=== PATIENT | female | born 1975 | race Caucasian/White ===

== ENCOUNTER 2024-12-14 12:16 | Outpatient (OUT) | payer MEDICARE, MEDICAID, SELFPAY ==
--- NOTE | 2024-12-14 12:44 | XR_ITS ---
[address] [address] Patient Name: ALY HILL MRN: [id number] date: 1975 Sex: F Assigned Patient Location: LAB Current Patient Location: LAB Accession/Order Number: [id number] Exam Date: 12/14/2024 12:49 Report Date: 12/14/2024 22:02 At the request of: TEZ EWING MD Procedure: XR chest 2V XR chest 2V 12/14/2024 12:53 PM SIGNS AND SYMPTOMS: ^Pre Operative Evaluation PROTOCOL: Frontal and lateral radiographs of the chest COMPARISON: None FINDINGS: The trachea is midline. The heart and mediastinal structures are within normal limits. The lung parenchyma is clear. The bony thorax is intact. There is a spinal cord stimulator. IMPRESSION: No acute cardiopulmonary pathology. Impression dictated by: Charlie Teran M.D. 12/14/2024 10:02 PM Dictation Location: [place] [id number] Electronically authenticated by: [id number] Y Date: 12/14/2024 22:02
[2024-12-14 12:47] LABS: Hematocrit 43.7 % (36.0-48.0); Hemoglobin 15.4 g/dL (12.0-16.0); Immature Granulocytes Abs Auto 0.04 10^3/uL (0.00-0.03); Immature Granulocytes Pct Auto 0.5 % (0.0-0.5); Lymphocytes Absolute Auto 2.2 10^3/uL (1.2-3.8); Mean Corpuscular HGB Conc 35.2 g/dL (29.9-35.2); Mean Corpuscular Hemoglobin 29.8 pg (26.7-34.0); Mean Corpuscular Volume 84.7 fL (81.0-99.0); Platelet Count 283 10^3/uL (150-450); Red Blood Count 5.16 10^6/uL (4.20-5.40); White Blood Count 8.0 10^3/uL (4.0-11.0)
--- NOTE | 2024-12-14 12:49 | ECG_ITS ---
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 Measurements Intervals [place] Rate: 83 P: [place]: 138 QRS: -18 QRSD: 129 T: 59 QT: 384 QTc: 452 Interpretive Statements NORMAL SINUS RHYTHM RIGHT BUNDLE BRANCH BLOCK [120+ ms QRS DURATION, UPRIGHT V1, 40+ ms S IN I/aVL/V4/V5/V6] RIGHT ATRIAL ABNORMALITY Abnormal ECG No previous ECG available for comparison Electronically Signed On 12-14-2024 18:06:14 EDT by ISAIAH MITCHELL M.D.
[2024-12-14 13:21] LABS: Alanine Aminotransferase 26 U/L (14-59); Albumin Globulin Ratio 0.9; Albumin Level 4.2 g/dL (3.4-5.0); Alkaline Phosphatase 94 U/L (46-116); Anion Gap 13.0; Aspartate Amino Transferase 11 U/L (15-37); Blood Urea Nitrogen 17.0 mg/dL (7.0-18.0); Calcium 9.9 mg/dL (8.5-10.1); Carbon Dioxide 25.6 mmol/L (21.0-32.0); Chloride 103 mmol/L (98-107); Cholesterol 288 mg/dL (<=200); Estimated GFR (African America >60 (>=60 mL/min/1.73m^2); Estimated GFR (Non-African Ame >60 (>=60 mL/min/1.73m^2); Globulin 4.6 g/dL; Glucose 231 mg/dL (74-106); HDL Cholesterol 60 mg/dL (40-60); Potassium 4.6 mmol/L (3.5-5.1); Sodium 137 mmol/L (136-145); TSH W/ REFLEX FT4 0.637 uIU/mL (0.358-3.740); Total Protein 8.8 g/dL (6.4-8.2); Triglycerides 462 mg/dL (<=150); VLDL CHOLESTEROL 92.4 mg/dL
== END 2024-12-14 12:17 | disposition home or self-care (01) ==
LOC: LAB 12:25
PROVIDERS: Visit Provider Internal Medicine
DX: Z01.818 Encounter for other preprocedural examination (principal); E03.9 Hypothyroidism, unspecified
CPT/HCPCS: 36415; 71046; 80053; 80061; 83036; 83721; 84443; 85025; 93005